=== PATIENT | female | born 1995 | race Caucasian/White ===

== ENCOUNTER 2021-04-03 13:07 | Emergency (ER) | payer MEDICAID ==
[2021-04-03] MEDS ORDERED: Lidocaine 2% Viscous Solution 15 ML Cup PO ONE (14:31)
[2021-04-03] MEDS ORDERED: Benzocaine 20% Topical Spray UD MUCMEM ONE (14:31)
--- NOTE | 2021-04-03 14:32 | EDM.PDOC ---
ED HPI GENERAL MEDICAL PROBLEM - General Chief Complaint: General Stated Complaint: RIGHT SIDE TOOTH PAIN Time Seen by Provider: 04/03/21 14:29 Source of Information: Reports: Patient History Limitations: Reports: No Limitations - History of Present Illness INITIAL COMMENTS - FREE TEXT/NARRATIVE: HISTORY AND PHYSICAL: History of present illness: Patient is a 25-year-old female who presents to the emergency room with complaints of right posterior upper and lower dental pain x2 weeks. She states the right posterior molar feels like an infected wisdom tooth. She does have an upcoming appointment with a local dentist although it is over a week out. Patient denies any fever, chills, headache, change in vision, syncope or near syncope. Denies any chest pain, back pain, shortness of breath or cough. Denies any GI or symptoms. Patient has been eating and drinking appropriately. No recent travel or sick contacts. Review of systems: As per history of present illness and below otherwise all systems reviewed and negative. Past medical history: As per history of present illness and as reviewed below otherwise noncontributory. Surgical history: As per history of present illness and as reviewed below otherwise noncontributory. Social history: See social history for further information Family history: As per history of present illness and as reviewed below otherwise noncontributory. Physical exam: General: Well developed and well nourished. Alert and orientated x 3. Nontoxic in appearance and in no acute distress. Vital signs are stable and have been re viewed by me. Nursing notes were reviewed. HEENT: Atraumatic, normocephalic, pupils equal and reactive bilaterally, negative for conjunctival pallor or scleral icterus, mucous membranes moist, erythema and soft tissue swelling at #31-32 and 1-2. No tenderness of the oral floor. TMs normal bilaterally, throat clear, neck supple, nontender, trachea midline. No drooling or trismus noted. No meningeal signs. No hot potato voice noted. Lungs: Clear to auscultation bilaterally. No wheezes, rales, or rhonchi. Chest nontender. Normal work of breathing, no accessory muscles used. Heart: S1S2, regular rate and rhythm without overt murmur, gallops, or rubs. No JVD. No peripheral edema Abdomen: Soft, nondistended, nontender. Skin: Intact, warm, dry. No lesions or rashes noted. Hematologic: No petechiae or purpra. Mucosa appropriate color and normal nail bed color and refill. Extremities: Atraumatic, moves all extremities per self without difficulty or deficits, negative for cords or calf pain. Neurovascular unremarkable. Neuro: Awake, alert, oriented. Cranial nerves II through XII unremarkable. Cerebellum unremarkable. Motor and sensory unremarkable throughout. Exam nonfocal. Psychiatric: Mood and affect are appropriate. Normal thought process. Answering questions appropriately. Please note that the patient was seen and evaluated during the 2019 SARS-CoV-2 novel coronavirus pandemic period. Community viral transmission is ongoing at time of this encounter and the emergency department is operating under pandemic response procedures. Medical Decision Making: I have talked with the patient about today's findings, in addition to providing specific details for plan of care. Reassessment at the time of disposition demonstrates that the patient is in no acute distress. The patient is stable for discharge, counseling was provided and we discussed in great detail signs and symptoms that would prompt them to return to the Emergency Department. Medication, follow up and supportive care measures were reviewed and discussed. Voices understanding and is agreeable to plan of care. Denies any further questions or concerns at this time. Diagnostics: None Therapeutics: Viscous/Hurricaine Dental Balls Prescription: Augmentin Impression: Dental abscess Plan: 1. You were evaluated today on an emergent basis. Your upper and lower posterior molars are infected. Please take the antibiotic as directed. 2. Tylenol and/or ibuprofen as needed for pain management. "Tooth Balls" have been given to you; apply along the gumline every 2-3 hours as needed. Do not swallow these; external use only. 3. We encourage you to follow up with a dentist for re-evaluation and further care/management. 4. If your symptoms should worsen, new symptoms develop or any of the signs and symptoms we discussed should arise please return to the emergency room or call 911 (if needed). Definitive disposition and diagnosis as appropriate pending reevaluation and review of above. Tooth/Teeth Pain Score (Numeric/FACES): 4 - Related Data Allergies Allergy/AdvReac Type Severity Reaction Status Date / Time No Known Allergies Allergy Verified 04/03/21 13:57 Home Meds: Home Meds Amoxicillin/Clavulanate K [Augmentin 875-125 MG] 1 tab PO BID 10 Days #20 tablet 04/03/21 [Rx] DULoxetine HCl [Cymbalta] 30 mg PO 04/03/21 [History] Hydrocodone/Acetaminophen [HYDROcodone-Acetaminophen 5-325 MG] 1 - 2 tab PO Q4HR PRN #20 tablet 04/03/21 [Rx] Social & Family History - Tobacco Use Second Hand Smoke Exposure: No - Caffeine Use Caffeine Use: Reports: None - Recreational Drug Use Recreational Drug Use: Yes Drug Use in Last 12 Months: Yes Recreational Drug Type: Reports: Marijuana/Hashish ED ROS GENERAL - Review of Systems Review Of Systems: Comprehensive ROS is negative, except as noted in HPI. ED EXAM, GENERAL - Physical Exam Exam: See Below (See dictation) Course - Vital Signs Last Recorded V/S: Last Vital Signs Temp 97.8 F 04/03/21 13:54 Pulse 80 04/03/21 13:54 Resp 20 04/03/21 13:54 BP 125/70 04/03/21 13:54 Pulse Ox 97 04/03/21 13:54 - Orders/Labs/Meds Meds: Medications Discontinued Medications Generic Name Dose Route Start Last Admin Trade Name Freq PRN Reason Stop Dose Admin Benzocaine 2 each 04/03/21 14:31 Benzocaine 20% Topical [place] Ud MUCMEM 04/03/21 14:32 ONETIME ONE Lidocaine HCl 15 ml 04/03/21 14:31 Lidocaine 2% Viscous Solution 15 Ml Cup PO 04/03/21 14:32 ONETIME ONE Departure - Departure Time of Disposition: 14:52 Disposition: Home, Self-Care 01 Clinical Impression: Dental abscess - Discharge Information Prescriptions: Amoxicillin/Clavulanate K [Augmentin 875-125 MG] 1 tab PO BID 10 Days #20 tablet Hydrocodone/Acetaminophen [HYDROcodone-Acetaminophen 5-325 MG] 1 - 2 tab PO Q4HR PRN #20 tablet PRN Reason: Pain (Moderate 4-6) Instructions: Dental Abscess, [id number] Referrals: Kianna Boles PA [Primary Care Provider] - Forms: ED Department Discharge Additional Instructions: The following information is given to patients seen in the emergency department who are being discharged to home. This information is to outline your options for follow-up care. We provide all patients seen in our emergency department with a follow-up referral. The need for follow-up, as well as the timing and circumstances, are variable depending upon the specifics of your emergency department visit. If you don't have a primary care physician on staff, we will provide you with a referral. We always advise you to contact your personal physician following an emergency department visit to inform them of the circumstance of the visit and for follow-up with them and/or the need for any referrals to a consulting specialist. The emergency department will also refer you to a specialist when appropriate. This referral assures that you have the opportunity for follow-up care with a specialist. All of these measure are taken in an effort to provide you with optimal care, which includes your follow-up. Under all circumstances we always encourage you to contact your private physician who remains a resource for coordinating your care. When calling for follow-up care, please make the office aware that this follow-up is from your recent emergency room visit. If for any reason you are refused follow-up, please contact the [facility] Emergency Department at and asked to speak to the emergency department charge nurse. [facility] [address] [place] [id number] [place] [address] Thank you for choosing the [facility] emergency department in [place] for your medical needs today. It was a pleasure caring for you. Today you were seen in the emergency department for dental abscess Your prescription was electronically sent to: [facility] 1. You were evaluated today on an emergent basis. Your upper and lower posterior molars are infected. Please take the antibiotic as directed. 2. Tylenol and/or ibuprofen as needed for pain management. "Tooth Balls" have been given to you; apply along the gumline every 2-3 hours as needed. Do not swallow these; external use only. 3. We encourage you to follow up with a dentist for re-evaluation and further care/management. 4. If your symptoms should worsen, new symptoms develop or any of the signs and symptoms we discussed should arise please return to the emergency room or call [phone] (if needed). Sepsis Event Note (ED) - Evaluation Sepsis Screening Result: No Definite Risk - Focused Exam Vital Signs: Vital Signs Temp Pulse Resp BP Pulse Ox 04/03/21 13:54 97.8 F 80 20 125/70 97
== END 2021-04-03 15:28 | disposition home or self-care (01) ==
LOC: MW.ED 13:07
DX: K04.7 Periapical abscess without sinus (principal)
CPT/HCPCS: 99282; A9270

== ENCOUNTER 2021-04-08 15:00 | Emergency (ER) | payer MEDICAID ==
--- NOTE | 2021-04-08 16:52 | EDM.PDOC ---
ED HPI GENERAL MEDICAL PROBLEM - General Chief Complaint: General Stated Complaint: TOOTHE PAIN Time Seen by Provider: 04/08/21 16:09 - History of Present Illness INITIAL COMMENTS - FREE TEXT/NARRATIVE: 25-year-old female presented with persistent right tooth pain. Symptoms been ongoing for the last 2 weeks she was seen here 5 days ago and started on antibiotics as well as given pain medicine. She was given 5/325 Roe as she is needed to take 2 at a time in order to help control her pain and has been out. Because of her Medicaid she needs to go up to [place] in order to get the dental procedure. No fevers no pain in the neck no difficulty swallowing. - Related Data Allergies Allergy/AdvReac Type Severity Reaction Status Date / Time No Known Allergies Allergy Verified 04/08/21 16:15 Home Meds: Home Meds Amoxicillin/Clavulanate K [Augmentin 875-125 MG] 1 tab PO BID 10 Days #20 tablet 04/03/21 [Rx] DULoxetine HCl [Cymbalta] 30 mg PO 04/03/21 [History] Hydrocodone/Acetaminophen [HYDROcodone-Acetaminophen 5-325 MG] 1 - 2 tab PO Q4HR PRN #20 tablet 04/03/21 [Rx] Hydrocodone/Acetaminophen [HYDROcodone-Acetaminophen 10-325 MG] 1 each PO Q6H PRN 7 Days #14 tab 04/08/21 [Rx] Past Medical History - Past Health History Medical/Surgical History: Denies Medical/Surgical History - Infectious Disease History Infectious Disease History: Reports: Chicken Pox Social & Family History - Family History Family Medical History: No Pertinent Family History - Tobacco Use Tobacco Use Status *Q: Current Every Day Tobacco User Years of Tobacco use: 10 Packs/Tins Daily: 1 - Caffeine Use Caffeine Use: Reports: Soda - Recreational Drug Use Recreational Drug Use: Yes Recreational Drug Type: Reports: Marijuana/Hashish Recreational Drug Use Frequency: Rarely ED ROS GENERAL - Review of Systems Review Of Systems: See Below Free Text/Narrative/Comment: General: No fever. Eyes: No vision problems. ENT: Per HPI Neck: No neck stiffness. Respiratory: No shortness of breath. Cardiac: No chest pain. Gastrointestinal: No nausea, vomiting or abdominal pain. ED EXAM, GENERAL - Physical Exam Exam: See Below Free Text/Narrative:: General Appearance: No acute distress, appears comfortable Skin: No rash HEENT: Normocephalic/atraumatic, sclera anicteric, mucous membranes moist, no trismus no submental or sublingual swelling broken teeth in the right side in the upper and lower jaw no clinical signs of abscess no fluctuance uvula midline no sign of CIRCUITS ENGINEER or RPA Neck: Normal range of motion Chest and Lungs: Normal work of breathing Cardiovascular: Intact distal perfusion Psychiatric: Appropriate, cooperative Course - Vital Signs Last Recorded V/S: Last Vital Signs Temp 96.8 F L 04/08/21 16:15 Pulse 69 04/08/21 16:15 Resp 18 04/08/21 16:15 BP 121/69 04/08/21 16:15 Pulse Ox 97 04/08/21 16:15 Departure - Departure Time of Disposition: 16:39 Disposition: Home, Self-Care 01 Condition: Good Clinical Impression: Tooth pain - Discharge Information *PRESCRIPTION DRUG MONITORING PROGRAM REVIEWED*: Yes *COPY OF PRESCRIPTION DRUG MONITORING REPORT IN PATIENT PARKER: No Prescriptions: Hydrocodone/Acetaminophen [HYDROcodone-Acetaminophen 10-325 MG] 1 each PO Q6H PRN 7 Days #14 tab PRN Reason: severe pain Referrals: Kianna Boles PA [Primary Care Provider] - Sepsis Event Note (ED) - Focused Exam Vital Signs: Vital Signs Temp Pulse Resp BP Pulse Ox 04/08/21 16:15 96.8 F L 69 18 121/69 97 - Assessment/Plan Assessment:: 25-year-old female presenting with ongoing right dental pain no signs of abscess or deep space infection of the head or neck. Patient is taking Tylenol and ibuprofen as well. She has a good concrete plan for how she will seek dental care for these reasons we will refill Roe prescription will increase dose to 10/325. Return precautions discussed and understood.
== END 2021-04-08 16:59 | disposition home or self-care (01) ==
LOC: MW.ED 15:00
DX: K08.89 Other specified disorders of teeth and supporting structures (principal); Z72.0 Tobacco use
CPT/HCPCS: 99282

== ENCOUNTER 2021-04-27 13:16 | Emergency (ER) | payer MEDICAID | END 2021-04-27 15:00 | disposition left against medical advice (07) | LOC: MW.ED 13:16 | DX: Z53.21 Procedure and treatment not carried out due to patient leaving prior to being seen by health care provider (principal) ==

== ENCOUNTER 2021-04-30 08:05 | Emergency (ER) | payer MEDICAID ==
[2021-04-30] MEDS ORDERED: traMADol 50 MG Tab PO ONE (08:27)
--- NOTE | 2021-04-30 09:06 | EDM.PDOC ---
ED HPI GENERAL MEDICAL PROBLEM - General Chief Complaint: General Stated Complaint: BACK PAIN Time Seen by Provider: 04/30/21 08:12 - History of Present Illness INITIAL COMMENTS - FREE TEXT/NARRATIVE: CHIEF COMPLAINT(S): Back pain HISTORY OF PRESENT ILLNESS: This is a 25-year-old woman with a past medical history of PCOS and fibromyalgia who comes to the emergency department with a chief complaint of back pain. Patient states that she is experiencing 4 to 5 days of back pain that is progressively gotten worse. She denies any bowel incontinence, urinary incontinence, saddle anesthesia, fever, chills, IV drug use. She states that she feels that just lateral to her spine in the mid spine and the shoulder. She describes the pain as burning and rated 10 out of 10. She said the pain is exacerbated by movement. There are no relieving factors. She states that she was seen and given tizanidine which has not helped. She states that she was told to take 2 but she took 5 which also did not help. She has tried Motrin but last dose was at 1:30 AM. She states that she also tried to smoke a significant amount of weed which also did not help. Pain does not radiate anywhere. REVIEW OF SYSTEMS: Constitutional: Denies fever, chills. Eyes: Denies eye pain Ears, Nose, Mouth, & Throat: Denies earache Cardiovascular: Denies chest pain Respiratory: Denies shortness of breath Gastrointestinal: Denies bowel incontinence, nausea, vomiting, diarrhea, hematochezia. Genitourinary: Denies hematuria, urinary incontinence Skin:Denies a rash MSK: Positive for paraspinal tenderness and shoulder tenderness Neurological: Denies blurred vision, numbness, tingling, weakness Psychiatric: Denies depression PAST MEDICAL HISTORY: As per history of present illness and as reviewed below otherwise noncontributory. SURGICAL HISTORY: As per history of present illness and as reviewed below otherwise noncontributory. SOCIAL HISTORY: As per history of present illness and as reviewed below otherwise noncontributory. FAMILY HISTORY: As per history of present illness and as reviewed below otherwise noncontributory. EXAMINATION OF ORGAN SYSTEMS/BODY AREAS: Constitutional: Blood pressure is 124/75, heart rate 81, respiratory rate 18 with an oxygen saturation 98% on room air. Temperature 36.1 General: Well-appearing young woman who is in no acute distress Psychiatric: Appropriate mood and affect. Eyes: No scleral icterus or conjunctival erythema ENMT: Moist mucous membranes. No pharyngeal erythema Cardiovascular: Regular, rate, and rhythm. No gallops, murmurs, or rubs. Bilateral upper extremity pulses symmetric and intact. No peripheral edema. No JVD. Respiratory: Lungs clear to auscultation bilaterally. No wheezes, rales, or rhonchi. Gastrointestinal: Soft, non-tender, non-distended. Normoactive bowel sounds Genitourinary: No suprapubic tenderness Musculoskeletal: Normal range of motion. No cervical, thoracic, or lumbar midline spinal tenderness. There is paraspinal muscle tenderness in the thora cic left-sided area and left shoulder area. Skin: No lesions or abrasions. Neurological: Alert, GCS 15 strength and sensation grossly intact in upper and lower extremities bilaterally MEDICAL DECISION MAKING AND COURSE IN THE ED WITH INTERPRETATION/REVIEW OF DIAGNOSTIC STUDIES: This is a 25-year-old woman with a past medical history of fibromyalgia and PCOS who comes to the emergency department with left-sided what appears to be musculoskeletal back pain. At this time although the patient denies any dysuria hematuria will obtain a urinalysis to evaluate for pyelonephritis/cystitis. We will provide the patient with tramadol for pain relief and I did discuss symptomatic treatment at home. She was amenable to this plan. DDx: Pyelonephritis, cystitis, musculoskeletal strain Urinalysis was a clean catch and was negative for leukocyte esterase, negative for nitrites, and negative for blood. X interpretation: Negative. After urinalysis I did discuss supportive treatment at home for her back pain. I discussed that if she had any new or worsening symptoms or had any red flag symptoms that she should return to the emergency department. She was amenable to discharge at this time and had no further questions DISPOSITION: The patient was discharged home in stable condition. The patient will follow up with 3 to 5 days. CONDITION: Fair PROCEDURES: None FINAL IMPRESSION(S)/DIAGNOSES: 1. Acute musculoskeletal back pain Ricardo Burdick M.D. Upper Shoulder Pain Score (Numeric/FACES): 7 - Related Data Allergies Allergy/AdvReac Type Severity Reaction Status Date / Time No Known Allergies Allergy Verified 04/30/21 08:10 Home Meds: Home Meds DULoxetine HCl [Cymbalta] 30 mg PO 04/03/21 [History] Acetaminophen [Tylenol Extra Strength] 1,000 mg PO Q6HR #56 tablet 04/30/21 [Rx] Ibuprofen 400 mg PO Q6HR #28 tablet 04/30/21 [Rx] methocarbamoL [Methocarbamol] 1,500 mg PO TID #42 tablet 04/30/21 [Rx] tiZANidine HCl [Tizanidine HCl] 2 mg PO Q8HR PRN 04/30/21 [History] traMADol [Ultram] 50 mg PO TID PRN #9 tablet 04/30/21 [Rx] Past Medical History - Past Health History Medical/Surgical History: Denies Medical/Surgical History 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 (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) 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 - Infectious Disease History Infectious Disease History: Reports: Chicken Pox Social & Family History - Family History Family Medical History: No Pertinent Family History - Tobacco Use Tobacco Use Status *Q: Current Every Day Tobacco User Years of Tobacco use: 10 Packs/Tins Daily: 1 - Caffeine Use Caffeine Use: Reports: Coffee, Energy Drinks, Soda, Tea - Recreational Drug Use Recreational Drug Type: Reports: Marijuana/Hashish Recreational Drug Use Frequency: Daily ED ROS GENERAL - Review of Systems Review Of Systems: See Below ED EXAM, GENERAL - Physical Exam Exam: See Below Course - Vital Signs Last Recorded V/S: Last Vital Signs Temp 36.1 C 04/30/21 08:13 Pulse 76 04/30/21 09:06 Resp 18 04/30/21 09:06 BP 107/65 04/30/21 09:06 Pulse Ox 97 04/30/21 09:06 - Orders/Labs/Meds Labs: Laboratory Tests 04/30/21 Range/Units 08:30 Urine Color YELLOW Urine Appearance CLEAR Urine pH 6.0 (5.0-8.0) Ur Specific [place] >= 1.030 (1.001-1.035) Urine Protein NEGATIVE (NEGATIVE) mg/dL Urine Glucose (UA) NEGATIVE (NEGATIVE) mg/dL Urine Ketones NEGATIVE (NEGATIVE) mg/dL Urine Occult Blood NEGATIVE (NEGATIVE) Urine Nitrite NEGATIVE (NEGATIVE) Urine Bilirubin NEGATIVE (NEGATIVE) Urine Urobilinogen 1.0 (<2.0) EU/dL Ur Leukocyte Esterase NEGATIVE (NEGATIVE) Meds: Medications Discontinued Medications Generic Name Dose Route Start Last Admin Trade Name Freq PRN Reason Stop Dose Admin Tramadol HCl 50 mg 04/30/21 08:27 04/30/21 08:35 Tramadol 50 Mg Tab PO 04/30/21 08:28 50 mg ONETIME ONE Administration Departure - Departure Time of Disposition: 09:05 Disposition: Home, Self-Care 01 Condition: Fair Clinical Impression: Back strain - Discharge Information *PRESCRIPTION DRUG MONITORING PROGRAM REVIEWED*: No *COPY OF PRESCRIPTION DRUG MONITORING REPORT IN PATIENT PARKER: No Prescriptions: Ibuprofen 400 mg PO Q6HR #28 tablet methocarbamoL [Methocarbamol] 1,500 mg PO TID #42 tablet Acetaminophen [Tylenol Extra Strength] 1,000 mg PO Q6HR #56 tablet traMADol [Ultram] 50 mg PO TID PRN #9 tablet PRN Reason: Pain (Severe 7-10) Instructions: Back Injury Prevention, [id number], Muscle Strain, [id number] Referrals: Kianna Boles PA [Primary Care Provider] - Forms: ED Department Discharge Additional Instructions: You were evaluated today on an emergent basis. At this time I do believe you are experiencing muscle spasm and back pain. I recommend you use Tylenol, Motrin, Robaxin and tramadol as prescribed. As discussed I would like you to use a heating pad 15 minutes every 3 hours as needed for relief. Please continue with your back stretches. If you have any episodes of accidentally urinating on yourself, defecate on yourself or you have any decreased sensation or you are concerned please return to the emergency department. Otherwise follow-up with primary care physician in 3 to 5 days for reevaluation. Please use: Tylenol 500-1000mg every 6 hours (DO NOT TAKE MORE THAN 4000mg in 1 day) Ibuprofen 400mg every 6 hours (Take with food as it can cause ulcers, GI upset) Example schedule: 8:00 AM (Tylenol 500-1000mg) 11:00 AM (Ibuprofen 400mg) 2:00 PM (Tylenol 500-1000mg) 5:00 PM (Ibuprofen 400mg) In addition to Tylenol and Motrin you may use over the counter creams such as Voltaren Cream or Lidocaine Cream (Lidoderm) as needed 4 times a day for symptomatic relief. Ice the area 20 minutes 4 times per day [facility] [address] [place], [place] [id number] [facility] [address] [place] [id number] The patient is informed of any results of their evaluation and diagnostic workup and all questions are answered. They are given discharge instructions and return precautions. The patient is stable for discharge. The patient states they understand and agree with the plan and that they will return if their symptoms get worse or if they have any new concerns. The following information is given to patients seen in the emergency department who are being discharged to home. This information is to outline your options for follow-up care. We provide all patients seen in our emergency department with a follow-up referral. The need for follow-up, as well as the timing and circumstances, are variable depending upon the specifics of your emergency department visit. If you don't have a primary care physician on staff, we will provide you with a referral. We always advise you to contact your personal physician following an emergency department visit to inform them of the circumstance of the visit and for follow-up with them and/or the need for any referrals to a consulting specialist. The emergency department will also refer you to a specialist when appropriate. This referral assures that you have the opportunity for follow-up care with a specialist. All of these measure are taken in an effort to provide you with optimal care, which includes your follow-up. Under all circumstances we always encourage you to contact your private physician who remains a resource for coordinating your care. When calling for follow-up care, please make the office aware that this follow-up is from your recent emergency room visit. If for any reason you are refused follow-up, please contact the [facility] Emergency Department at and asked to speak to the emergency department charge nurse. Sepsis Event Note (ED) - Evaluation Sepsis Screening Result: No Definite Risk
== END 2021-04-30 09:17 | disposition home or self-care (01) ==
LOC: MW.ED 08:05
DX: S39.012A Strain of muscle, fascia and tendon of lower back, initial encounter (principal); Z72.0 Tobacco use; X58.XXXA Exposure to other specified factors, initial encounter
CPT/HCPCS: 81003; 99283; A9270

== ENCOUNTER 2021-05-05 12:42 | Emergency (ER) | payer MEDICAID ==
[2021-05-05 14:02] LABS: BLOOD UREA NITROGEN,BUN 10 mg/dL (7.0-18.0); CARBON DIOXIDE,CO2 26.1 mmol/L (21.0-32.0); CHLORIDE,CL 105 mmol/L (98-107); GLUCOSE RANDOM 118 mg/dL (74-106); SODIUM,NA 137 mmol/L (136-145)
--- NOTE | 2021-05-05 15:15 | EDM.PDOC ---
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 Patient states with her PCOS, she does have abnormal menstrual cycles and states her last menstrual cycle was in December. Patient states that she is not on control but uses condoms with her significant other who she has been in a monogamous relationship with since December. Patient states that she also has chronic low back pain and states that she has had this since she was quite young but states that her painful menstrual cramping has worsened her low back pain. Patient denies any trauma or injury. Patient denies any loss or retention of bowel bladder function or saddle anesthesia. Patient states that she is currently being treated for bacterial vaginosis as she has had frequent vaginal infections with BV and states that she saw her primary care provider and was given the vaginal gel a few days ago. Patient states that she also has a history of ovarian cysts and states that her pain is somewhat similar to prior cysts in the past. Patient states that she has not taken anything for her symptoms and denies any other symptoms or concerns. Patient states that she uses a menstrual cup and blood through this and 1 pad since this morning. Patient denies fever, chills, chest pain, shortness of breath, or cough. Denies headache, neck stiff ness, change in vision, syncope, or near syncope. Denies nausea, vomiting, diarrhea, constipation, or dysuria. Has not noted any blood in urine or stool. Patient has been eating and drinking appropriately. Review of systems: As per history of present illness and below otherwise all systems reviewed and negative. Past medical history: As per history of present illness and as reviewed below otherwise noncontributory. Surgical history: As per history of present illness and as reviewed below otherwise noncontributory. Social history: See social history for further information Family history: As per history of present illness and as reviewed below otherwise noncontributory. Physical exam: General: Patient is alert, oriented, and in no acute distress. Patient sitting comfortably on exam table. Vitals stable and reviewed by me. HEENT: Atraumatic, normocephalic, pupils equal and reactive bilaterally, negative for conjunctival pallor or scleral icterus, mucous membranes moist, throat clear, neck supple, nontender, trachea midline. No drooling or trismus noted. No meningeal signs. No hot potato voice noted. Lungs: Clear to auscultation, breath sounds equal bilaterally, chest nontender. Heart: S1S2, regular rate and rhythm without overt murmur Abdomen: Soft, nondistended, mild-moderate suprapubic tenderness without guarding. Negative for masses or hepatosplenomegaly. Negative for costovertebral tenderness. Pelvis: Stable nontender. Genitourinary: Locksmith Apprentice at bedside Shasha Rivera RN. External genitalia grossly unremarkable. There is a mild to moderate amount of dark vaginal blood in the vaginal vault without clots. Positive cervical motion tenderness with positive chandelier sign. Uterus is also tender with no adnexal mass or tenderness. Rectal: Deferred. Skin: Intact, warm, dry. No lesions or rashes noted. Extremities: Atraumatic, negative for cords or calf pain. Neurovascular unremarkable. Neuro: Awake, alert, oriented. Cranial nerves II through XII unremarkable. Cerebellum unremarkable. Motor and sensory unremarkable throughout. Exam nonfocal. Medical Decision Making: Patient is a 25-year-old female with a history of PCOS and infrequent menstrual cycles, who presents emergency room today with concern of heavy vaginal bleeding with increased painful menstrual cycle x2 days. Upon arrival to the ED, patient is vitally stable and well-appearing on exam. She does have mild to moderate suprapubic tenderness on exam. Patient also has positive cervical motion tenderness with positive chandelier sign indicative of PID. Will give a dose of IM Rocephin here and treat empirically for pelvic inflammatory disease following gonorrhea and chlamydia swab. CBC mild derangements are unremarkable with hemoglobin and hematocrit within normal limits. CMP mild derangements unremarkable. hCG negative. Urinalysis does show 50-75 red blood cells, patient is actively vaginal bleeding, otherwise urinalysis is clear. Affirm negative. Transvaginal ultrasound shows a simple right ovarian cyst measuring up to 5.2 cm and a simple left ovarian cyst measuring up to 4.5 cm. Normal thickness endometrial stripe at 8 mm. Ovarian blood flow demonstrated bilaterally. Pending gonorrhea and chlamydia swab Upon reevaluation of patient, she remains vitally stable and comfortable throughout stay in ED. I did discuss patient's physical exam concerning for PID, although she is in a monogamous relationship and pending gonorrhea and chlamydia swab, will treat empirically at this time and have patient follow-up closely with a women's health care provider. Patient also has ovarian cysts on both of her ovaries and discussed the importance to have this evaluated in relation to her PCOS and next plan of treatment with her PROCESS CONTROLS TECHNICIAN provider. Patient placed on a follow-up list with PROCESS CONTROLS TECHNICIAN. Strict return precautions thoroughly discussed with patient. Voices understanding and is agreeable to plan of care. Denies any further questions or concerns at this time. Diagnostics: CBC, CMP, UA, serum hCG, lipase, transvaginal ultrasound, G&C, Affirm Therapeutics: Rocephin Prescription: Metronidazole, doxycycline, ([place]#8 tabs) Impression: Pelvic inflammatory disease Menorrhagia Ovarian cyst, bilateral Plan: 1. You can alternate ibuprofen and Tylenol as directed for pain and discomfort. Take medication as prescribed. Your prescription has been sent to [facility]. Caution when taking hydrocodone as this medication does cause drowsiness and sedation. Do not take this medication while driving a vehicle or operating any equipment and caution with this medication outside of the home. 2. Follow-up with the women's health care provider as discussed. The number has been provided above for you to call and set up an appointment time. 3. Return to the ED as needed and as discussed. Refrain from sexual activity for 2 weeks or until otherwise notified by the PROCESS CONTROLS TECHNICIAN provider. Definitive disposition and diagnosis as appropriate pending reevaluation and review of above. lower back Pain Score (Numeric/FACES): 7 - Related Data Allergies Allergy/AdvReac Type Severity Reaction Status Date / Time No Known Allergies Allergy Verified 05/05/21 13:14 Home Meds: Home Meds DULoxetine HCl [Cymbalta] 60 mg PO DAILY 04/03/21 [History] Acetaminophen [Tylenol Extra Strength] 1,000 mg PO Q6HR #56 tablet 04/30/21 [Rx] Ibuprofen 400 mg PO Q6HR #28 tablet 04/30/21 [Rx] tiZANidine HCl [Tizanidine HCl] 2 mg PO Q8HR PRN 04/30/21 [History] Doxycycline [Vibramycin] 100 mg PO BID 14 Days #28 cap 05/05/21 [Rx] Hydrocodone/Acetaminophen [HYDROcodone-Acetaminophen 7.5-325 MG] 1 each PO Q6H PRN #8 tablet 05/05/21 [Rx] metroNIDAZOLE [Flagyl] 500 mg PO Q12H 14 Days #28 tab 05/05/21 [Rx] Past Medical History - Past Health History Medical/Surgical History: Denies Medical/Surgical History HEENT History: Reports: None Cardiovascular History: Reports: None Respiratory History: Reports: None Gastrointestinal History: Reports: None Genitourinary History: Reports: None PROCESS CONTROLS TECHNICIAN History: Reports: Other (See Below) Other PROCESS CONTROLS TECHNICIAN History: PCOS, recurrent BV Musculoskeletal History: Reports: Back Pain, Chronic, Fibromyalgia Neurological History: Reports: None Psychiatric History: Reports: None Endocrine/Metabolic History: Reports: None Hematologic History: Reports: None Immunologic History: Reports: None Oncologic (Cancer) History: Reports: None Dermatologic History: Reports: None - Infectious Disease History Infectious Disease History: Reports: Chicken Pox, Pertussis (Whooping Cough) - Past Surgical History Head Surgeries/Procedures: Reports: None Female Surgical History: Reports: D&C Musculoskeletal Surgical History: Reports: None Social & Family History - Family History Family Medical History: No Pertinent Family History - Tobacco Use Tobacco Use Status *Q: Current Every Day Tobacco User Years of Tobacco use: 10 Packs/Tins Daily: 1 - Caffeine Use Caffeine Use: Reports: Coffee - Recreational Drug Use Recreational Drug Use: Yes Drug Use in Last 12 Months: Yes Recreational Drug Type: Reports: Marijuana/Hashish Recreational Drug Use Frequency: Daily ED ROS GENERAL - Review of Systems Review Of Systems: Comprehensive ROS is negative, except as noted in HPI. ED EXAM, GENERAL - Physical Exam Exam: See Below (see dictation) Course - Vital Signs Last Recorded V/S: Last Vital Signs Temp 98.9 F 05/05/21 16:53 Pulse 70 05/05/21 16:53 Resp 16 05/05/21 16:53 BP 106/79 05/05/21 16:53 Pulse Ox 95 05/05/21 16:53 - Orders/Labs/Meds Orders: Active Orders 24 hr Category Date Time Status CHLAMYDIA AND GONORRHEA BY TMA Stat Lab 05/05/21 16:20 Received Labs: Laboratory Tests 05/05/21 05/05/21 05/05/21 Range/Units 13:34 13:34 13:34 WBC 6.38 (4.0-11.0) K/uL RBC 4.57 (4.30-5.90) M/uL Hgb 14.1 (12.0-16.0) g/dL Hct 41.5 (36.0-46.0) % MCV 90.8 (80.0-98.0) fL MCH 30.9 (27.0-32.0) pg MCHC 34.0 (31.0-37.0) g/dL RDW Std Deviation 43.0 (28.0-62.0) fl RDW Coeff of Lyndsey 13 (11.0-15.0) % Plt Count 269 (150-400) K/uL MPV 10.00 (7.40-12.00) fL Neut % (Auto) 70.3 (48.0-80.0) % Lymph % (Auto) 17.4 (16.0-40.0) % [place] % (Auto) 4.5 (0.0-15.0) % Eos % (Auto) 7.5 H (0.0-7.0) % Baso % (Auto) 0.3 (0.0-1.5) % Neut # (Auto) 4.5 (1.4-5.7) K/uL Lymph # (Auto) 1.1 (0.6-2.4) K/uL [place] # (Auto) 0.3 (0.0-0.8) K/uL Eos # (Auto) 0.5 (0.0-0.7) K/uL Baso # (Auto) 0.0 (0.0-0.1) K/uL Nucleated RBC % 0.0 /100WBC Nucleated RBCs # 0 K/uL Sodium 137 (136-145) mmol/L Potassium 4.0 (3.5-5.1) mmol/L Chloride 105 (98-107) mmol/L Carbon Dioxide 26.1 (21.0-32.0) mmol/L BUN 10 (7.0-18.0) mg/dL Creatinine 0.7 (0.6-1.0) mg/dL Est Cr Clr Drug Dosing 102.51 mL/min Estimated GFR (MDRD) > 60.0 ml/min Glucose 118 H (74-106) mg/dL Calcium 8.7 (8.5-10.1) mg/dL Total Bilirubin 0.5 (0.2-1.0) mg/dL AST 14 L (15-37) IU/L ALT 18 (14-63) IU/L Alkaline Phosphatase 76 (46-116) U/L Total Protein 7.6 (6.4-8.2) g/dL Albumin 3.7 (3.4-5.0) g/dL Globulin 3.9 (2.6-4.0) g/dL Albumin/Globulin Ratio 0.9 (0.9-1.6) Lipase (73-393) U/L HCG, Qual NEGATIVE (NEG) Urine Color Urine Appearance Urine pH (5.0-8.0) Ur Specific [place] (1.001-1.035) Urine Protein (NEGATIVE) mg/dL Urine Glucose (UA) (NEGATIVE) mg/dL Urine Ketones (NEGATIVE) mg/dL Urine Occult Blood (NEGATIVE) Urine Nitrite (NEGATIVE) Urine Bilirubin (NEGATIVE) Urine Urobilinogen (<2.0) EU/dL Ur Leukocyte Esterase (NEGATIVE) Urine RBC (0-2/HPF) Urine WBC (0-5/HPF) Ur Epithelial Cells (NONE-FEW) Urine Bacteria (NEGATIVE) Mitzi species DNA (NEGATIVE) Gardnerella DNA Probe (NEGATIVE) Trichomonas DNA Probe (NEGATIVE) 05/05/21 05/05/21 05/05/21 Range/Units 13:34 14:40 15:50 WBC (4.0-11.0) K/uL RBC (4.30-5.90) M/uL Hgb 14.0 (12.0-16.0) g/dL Hct 40.5 (36.0-46.0) % MCV (80.0-98.0) fL MCH (27.0-32.0) pg MCHC (31.0-37.0) g/dL RDW Std Deviation (28.0-62.0) fl RDW Coeff of Lyndsey (11.0-15.0) % Plt Count (150-400) K/uL MPV (7.40-12.00) fL Neut % (Auto) (48.0-80.0) % Lymph % (Auto) (16.0-40.0) % [place] % (Auto) (0.0-15.0) % Eos % (Auto) (0.0-7.0) % Baso % (Auto) (0.0-1.5) % Neut # (Auto) (1.4-5.7) K/uL Lymph # (Auto) (0.6-2.4) K/uL [place] # (Auto) (0.0-0.8) K/uL Eos # (Auto) (0.0-0.7) K/uL Baso # (Auto) (0.0-0.1) K/uL Nucleated RBC % /100WBC Nucleated RBCs # K/uL Sodium (136-145) mmol/L Potassium (3.5-5.1) mmol/L Chloride (98-107) mmol/L Carbon Dioxide (21.0-32.0) mmol/L BUN (7.0-18.0) mg/dL Creatinine (0.6-1.0) mg/dL Est Cr Clr Drug Dosing mL/min Estimated GFR (MDRD) ml/min Glucose (74-106) mg/dL Calcium (8.5-10.1) mg/dL Total Bilirubin (0.2-1.0) mg/dL AST (15-37) IU/L ALT (14-63) IU/L Alkaline Phosphatase (46-116) U/L Total Protein (6.4-8.2) g/dL Albumin (3.4-5.0) g/dL Globulin (2.6-4.0) g/dL Albumin/Globulin Ratio (0.9-1.6) Lipase 101 (73-393) U/L HCG, Qual (NEG) Urine Color YELLOW Urine Appearance SLT CLOUDY Urine pH 7.0 (5.0-8.0) Ur Specific [place] 1.015 (1.001-1.035) Urine Protein NEGATIVE (NEGATIVE) mg/dL Urine Glucose (UA) NEGATIVE (NEGATIVE) mg/dL Urine Ketones NEGATIVE (NEGATIVE) mg/dL Urine Occult Blood LARGE H (NEGATIVE) Urine Nitrite NEGATIVE (NEGATIVE) Urine Bilirubin NEGATIVE (NEGATIVE) Urine Urobilinogen 0.2 (<2.0) EU/dL Ur Leukocyte Esterase NEGATIVE (NEGATIVE) Urine RBC 50-75 H (0-2/HPF) Urine WBC 0-5 (0-5/HPF) Ur Epithelial Cells RARE (NONE-FEW) Urine Bacteria NOT SEEN (NEGATIVE) Mitzi species DNA (NEGATIVE) Gardnerella DNA Probe (NEGATIVE) Trichomonas DNA Probe (NEGATIVE) 05/05/21 Range/Units 16:20 WBC (4.0-11.0) K/uL RBC (4.30-5.90) M/uL Hgb (12.0-16.0) g/dL Hct (36.0-46.0) % MCV (80.0-98.0) fL MCH (27.0-32.0) pg MCHC (31.0-37.0) g/dL RDW Std Deviation (28.0-62.0) fl RDW Coeff of Lyndsey (11.0-15.0) % Plt Count (150-400) K/uL MPV (7.40-12.00) fL Neut % (Auto) (48.0-80.0) % Lymph % (Auto) (16.0-40.0) % [place] % (Auto) (0.0-15.0) % Eos % (Auto) (0.0-7.0) % Baso % (Auto) (0.0-1.5) % Neut # (Auto) (1.4-5.7) K/uL Lymph # (Auto) (0.6-2.4) K/uL [place] # (Auto) (0.0-0.8) K/uL Eos # (Auto) (0.0-0.7) K/uL Baso # (Auto) (0.0-0.1) K/uL Nucleated RBC % /100WBC Nucleated RBCs # K/uL Sodium (136-145) mmol/L Potassium (3.5-5.1) mmol/L Chloride (98-107) mmol/L Carbon Dioxide (21.0-32.0) mmol/L BUN (7.0-18.0) mg/dL Creatinine (0.6-1.0) mg/dL Est Cr Clr Drug Dosing mL/min Estimated GFR (MDRD) ml/min Glucose (74-106) mg/dL Calcium (8.5-10.1) mg/dL Total Bilirubin (0.2-1.0) mg/dL AST (15-37) IU/L ALT (14-63) IU/L Alkaline Phosphatase (46-116) U/L Total Protein (6.4-8.2) g/dL Albumin (3.4-5.0) g/dL Globulin (2.6-4.0) g/dL Albumin/Globulin Ratio (0.9-1.6) Lipase (73-393) U/L HCG, Qual (NEG) Urine Color Urine Appearance Urine pH (5.0-8.0) Ur Specific [place] (1.001-1.035) Urine Protein (NEGATIVE) mg/dL Urine Glucose (UA) (NEGATIVE) mg/dL Urine Ketones (NEGATIVE) mg/dL Urine Occult Blood (NEGATIVE) Urine Nitrite (NEGATIVE) Urine Bilirubin (NEGATIVE) Urine Urobilinogen (<2.0) EU/dL Ur Leukocyte Esterase (NEGATIVE) Urine RBC (0-2/HPF) Urine WBC (0-5/HPF) Ur Epithelial Cells (NONE-FEW) Urine Bacteria (NEGATIVE) Mitzi species DNA NEGATIVE (NEGATIVE) Gardnerella DNA Probe NEGATIVE (NEGATIVE) Trichomonas DNA Probe NEGATIVE (NEGATIVE) Meds: Medications Discontinued Medications Generic Name Dose Route Start Last Admin Trade Name Freq PRN Reason Stop Dose Admin Ceftriaxone Sodium 500 mg/ 1 mls @ 1 mls/sec 05/05/21 16:33 05/05/21 16:50 Lidocaine HCl IM 05/05/21 16:34 1 mls/sec ONETIME ONE Administration Departure - Departure Time of Disposition: 16:13 Disposition: Home, Self-Care 01 Clinical Impression: Menorrhagia, Pelvic inflammatory disease, Ovarian cyst - Discharge Information Prescriptions: metroNIDAZOLE [Flagyl] 500 mg PO Q12H 14 Days #28 tab Hydrocodone/Acetaminophen [HYDROcodone-Acetaminophen 7.5-325 MG] 1 each PO Q6H PRN #8 tablet PRN Reason: Pain (Severe 7-10) Doxycycline [Vibramycin] 100 mg PO BID 14 Days #28 cap Instructions: Menorrhagia, [id number], Pelvic Inflammatory Disease, [id number] Referrals: Kianna Boles PA [Primary Care Provider] - Forms: ED Department Discharge Additional Instructions: GustThe following information is given to patients seen in the emergency department who are being discharged to home. This information is to outline your options for follow-up care. We provide all patients seen in our emergency department with a follow-up referral. The need for follow-up, as well as the timing and circumstances, are variable depending upon the specifics of your emergency department visit. If you don't have a primary care physician on staff, we will provide you with a referral. We always advise you to contact your personal physician following an emergency department visit to inform them of the circumstance of the visit and for follow-up with them and/or the need for any referrals to a consulting specialist. The emergency department will also refer you to a specialist when appropriate. This referral assures that you have the opportunity for follow-up care with a specialist. All of these measure are taken in an effort to provide you with optimal care, which includes your follow-up. Under all circumstances we always encourage you to contact your private physician who remains a resource for coordinating your care. When calling for follow-up care, please make the office aware that this follow-up is from your recent emergency room visit. If for any reason you are refused follow-up, please contact the [facility] Emergency Department at and asked to speak to the emergency department charge nurse. [facility] [address] [place] [id number] [facility] [address] [place] [address] 1. You can alternate ibuprofen and Tylenol as directed for pain and discomfort. Take medication as prescribed. Your prescription has been sent to [facility]. Caution when taking hydrocodone as this medication does cause drowsiness and sedation. Do not take this medication while driving a vehicle or operating any equipment and caution with this medication outside of the home. 2. Follow-up with the women's health care provider as discussed. The number has been provided above for you to call and set up an appointment time. 3. Return to the ED as needed and as discussed. Refrain from sexual activity for 2 weeks or until otherwise notified by the PROCESS CONTROLS TECHNICIAN provider. Sepsis Event Note (ED) - Evaluation Sepsis Screening Result: No Definite Risk - Focused Exam Vital Signs: Vital Signs Temp Pulse Resp BP Pulse Ox 05/05/21 16:53 98.9 F 70 16 106/79 95 05/05/21 13:16 96.8 F L 84 16 119/87 97 - My Orders Last 24 Hours: My Active Orders 05/05/21 16:20 CHLAMYDIA AND GONORRHEA BY [facility]MA Stat - Assessment/Plan Last 24 Hours: My Active Orders 05/05/21 16:20 CHLAMYDIA AND GONORRHEA BY [facility] Stat
--- NOTE | 2021-05-05 15:37 | US ---
INDICATION: Left pelvic pain and heavy bleeding. TECHNIQUE: Transvaginal scanning was performed to optimally evaluate the endometrium and adnexa. Ovarian blood flow was evaluated with color-flow doppler. COMPARISON: None. FINDINGS: The uterus is normal in size and shape. The uterus measures 8.7 x 3.9 x 4.0 cm. No uterine mass is evident. The endometrial stripe is normal in thickness at 8 mm. A simple right ovarian cyst measuring 5.2 x 4.7 x 3.3 cm is demonstrated as well as a simple left ovarian cyst measuring 4.5 x 3.0 x 2.6 cm. The right ovary measures 6.5 x 4.6 x 2.8 cm and left 5.4 x 3.6 x 2.8 cm. Ovarian blood flow is demonstrated with color-flow doppler. No adnexal mass is evident. No free fluid is demonstrated. IMPRESSION: 1. Simple right ovarian cyst measuring up to 5.2 cm and simple left ovarian cyst measuring up to 4.5 cm. 2. Normal-thickness endometrial stripe at 8 mm Dictated by Max Thompson MD @ 05/05/2021 3:36:21 PM (Electronically Signed)
[2021-05-05] MEDS ORDERED: cefTRIAXone 500 MG in Lidocaine 1% 1 ML IM ONE (16:33)
[2021-05-08 15:07] LABS: C.TRACHOMATIS BY TMA Negative (Negative); N.GONORRHOEAE BY TMA Negative (Negative)
== END 2021-05-05 16:59 | disposition home or self-care (01) ==
LOC: MW.ED 12:42
DX: N73.9 Female pelvic inflammatory disease, unspecified (principal); N92.0 Excessive and frequent menstruation with regular cycle; N83.201 Unspecified ovarian cyst, right side; N83.202 Unspecified ovarian cyst, left side; Z72.0 Tobacco use; Z79.899 Other long term (current) drug therapy
CPT/HCPCS: 36415; 76830; 80053; 81001; 83690; 84703; 85014; 85018; 85025; 87480; 87491; 87510; 87591; 87660; 96372; 99284; J0696

== ENCOUNTER 2021-06-16 07:13 | Emergency (ER) | payer MEDICAID ==
[2021-06-16] MEDS ORDERED: Alum Hydro/Mag Hydro/Simeth XS 15 ML, Lidocaine 2% 5 ML PO ONE ×2 (07:47)
[2021-06-16] MEDS ORDERED: Ondansetron 4 MG/2 ML SDV IVPUSH ONE (07:47)
[2021-06-16] MEDS ORDERED: Sodium Chloride 0.9% 1,000 ML IV ONE (07:47)
[2021-06-16] MEDS ORDERED: Famotidine 20 MG/2 ML SDV IVPUSH ONE (07:47)
[2021-06-16 08:16] LABS: BLOOD UREA NITROGEN,BUN 18 mg/dL (7.0-18.0); CARBON DIOXIDE,CO2 20.3 mmol/L (21.0-32.0); CHLORIDE,CL 102 mmol/L (98-107); GLUCOSE RANDOM 122 mg/dL (74-106); LIPASE 135 U/L (73-393); POTASSIUM,K 4.2 mmol/L (3.5-5.1); SODIUM,NA 139 mmol/L (136-145)
[2021-06-16] MEDS ORDERED: Ondansetron 4 MG/2 ML SDV IVPUSH STA (08:34)
[2021-06-16] MEDS ORDERED: Piperacillin/Tazobactam 4.5 GM in Sodium Chloride 0.9% 100 ML IV STA (08:37)
[2021-06-16] MEDS ORDERED: Sodium Chloride 0.9% 100 ML ONE (08:45)
[2021-06-16] MEDS ORDERED: Piperacillin/Tazobactam 4.5 GM AdvVial ONE (08:45)
--- NOTE | 2021-06-16 09:00 | EDM.PDOC ---
<Shahla Clark - Last Filed: 06/16/21 09:28> ED HPI GENERAL MEDICAL PROBLEM - General Chief Complaint: Gastrointestinal Problem Stated Complaint: VOMITING Time Seen by Provider: 06/16/21 07:17 - History of Present Illness INITIAL COMMENTS - FREE TEXT/NARRATIVE: 25-year-old female presents to the ER with complaints of nausea, vomiting and diarrhea since 4 AM this morning. Patient states she was seen in the walk-in clinic yesterday for dental caries and given a prescription for codeine and Augmentin. She did not pick up attendant her Augmentin. She is unsure if this is related to her dinner she ordered last night. As per patient she woke up at 3 AM with abdominal cramps and nausea. She has been vomiting clear nonbilious, nonbloody vomit since, roughly 5 episodes. 3 episodes of watery stools. Denies fever or chills. Denies hematochezia, melena, or hematuria. Denies dysuria. Denies chest pain, palpitations, headaches, lightheadedness, or syncope. Bilateral Abdominal Pain Score (Numeric/FACES): 6 - Related Data Allergies Allergy/AdvReac Type Severity Reaction Status Date / Time No Known Allergies Allergy Verified 06/16/21 07:20 Home Meds: Home Meds DULoxetine HCl [Cymbalta] 60 mg PO DAILY 04/03/21 [History] Acetaminophen [Tylenol Extra Strength] 1,000 mg PO Q6HR #56 tablet 04/30/21 [Rx] Ibuprofen 400 mg PO Q6HR #28 tablet 04/30/21 [Rx] tiZANidine HCl [Tizanidine HCl] 2 mg PO Q8HR PRN 04/30/21 [History] Doxycycline [Vibramycin] 100 mg PO BID 14 Days #28 cap 05/05/21 [Rx] Hydrocodone/Acetaminophen [HYDROcodone-Acetaminophen 7.5-325 MG] 1 each PO Q6H PRN #8 tablet 05/05/21 [Rx] metroNIDAZOLE [Flagyl] 500 mg PO Q12H 14 Days #28 tab 05/05/21 [Rx] ondansetron HCL [Zofran] 4 mg PO Q8HR PRN #12 tablet 06/16/21 [Rx] Past Medical History - Past Health History Medical/Surgical History: Denies Medical/Surgical History HEENT History: Reports: None Cardiovascular History: Reports: None Respiratory History: Reports: None Gastrointestinal History: Reports: None Genitourinary History: Reports: None 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 ENGINEER 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: 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: 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 (See Below) Other 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 ENGINEER History: PCOS, recurrent BV Musculoskeletal History: Reports: Back Pain, Chronic, Fibromyalgia Neurological History: Reports: None Psychiatric History: Reports: None Endocrine/Metabolic History: Reports: None Hematologic History: Reports: None Immunologic History: Reports: None Oncologic (Cancer) History: Reports: None Dermatologic History: Reports: None - Infectious Disease History Infectious Disease History: Reports: Chicken Pox, Pertussis (Whooping Cough) - Past Surgical History Head Surgeries/Procedures: Reports: None Female Surgical History: Reports: D&C Musculoskeletal Surgical History: Reports: None Social & Family History - Family History Family Medical History: No Pertinent Family History - Tobacco Use Tobacco Use Status *Q: Current Every Day Tobacco User Years of Tobacco use: 10 Packs/Tins Daily: 0.5 - Caffeine Use Caffeine Use: Reports: Coffee - Recreational Drug Use Recreational Drug Use: No ED ROS GENERAL - Review of Systems Review Of Systems: Comprehensive ROS is negative, except as noted in HPI. ED EXAM, GENERAL - Physical Exam Exam: See Below General Appearance: Alert, No Apparent Distress Eye Exam: Bilateral Eye: Normal Inspection Nose: Normal Inspection Throat/Mouth: Other (Dry mucosa. Dental caries present x3 on upper right #3, lower right #30, and lower left #19. Uvula midline. Posterior oropharynx appears normal.) Head: Atraumatic, Normocephalic. No: Sinus Tenderness Neck: Normal Inspection, Supple, Non-Tender, Full Range of Motion. No: Lymphadenopathy (L), Lymphadenopathy (R) Respiratory/Chest: No Respiratory Distress, Lungs Clear Cardiovascular: Normal Peripheral Pulses, Regular Rate, Rhythm GI/Abdominal: Soft, Non-Tender Extremities: Normal Inspection Skin Exam: Warm, Dry, Intact Course - Re-Assessments/Exams Free Text/Narrative Re-Assessment/Exam: 06/16/21 09:17 Patient received 1 L normal saline. Zofran, GI cocktail and famotidine. Patient states she feels better and abdominal discomfort has subsided. She continues to have mild nausea. We will repeat 1 dose of Zofran. Elevated WBC, will give Zosyn. CMP unremarkable. UA shows no sign of infection. 06/16/21 09:18 Free Text/Narrative Re-Assessment/Exam: 06/16/21 09:28 Patient has now tolerating diet. Nausea vomiting has subsided. Patient feels better. Strict return precautions given. Will send prescription for Zofran. Departure - Departure Time of Disposition: :28 Disposition: Home, Self-Care 01 Condition: Good Clinical Impression: Dental abscess, Nausea & vomiting - Discharge Information *PRESCRIPTION DRUG MONITORING PROGRAM REVIEWED*: Not Applicable *COPY OF PRESCRIPTION DRUG MONITORING REPORT IN PATIENT PARKER: Not Applicable Prescriptions: ondansetron HCL [Zofran] 4 mg PO Q8HR PRN #12 tablet PRN Reason: Nausea/Vomiting Instructions: Dental Abscess, [id number] Referrals: Kianna Boles PA [Primary Care Provider] - Forms: ED Department Discharge Additional Instructions: The following information is given to patients seen in the emergency department who are being discharged to home. This information is to outline your options for follow-up care. We provide all patients seen in our emergency department with a follow-up referral. The need for follow-up, as well as the timing and circumstances, are variable depending upon the specifics of your emergency department visit. If you don't have a primary care physician on staff, we will provide you with a referral. We always advise you to contact your personal physician following an emergency department visit to inform them of the circumstance of the visit and for follow-up with them and/or the need for any referrals to a consulting specialist. The emergency department will also refer you to a specialist when appropriate. This referral assures that you have the opportunity for follow-up care with a specialist. All of these measure are taken in an effort to provide you with optimal care, which includes your follow-up. Under all circumstances we always encourage you to contact your private physician who remains a resource for coordinating your care. When calling for follow-up care, please make the office aware that this follow-up is from your recent emergency room visit. If for any reason you are refused follow-up, please contact the [facility] Emergency Department at and asked to speak to the emergency department charge nurse. [facility] [address] [place] [id number] [facility] [address] [place] [id number] Thank you for choosing the [facility] emergency department in [place] for your medical needs today. It was a pleasure caring for you. Today you were seen in the emergency department for nausea and vomiting. You have been sent a prescription for Zofran to help nausea and vomiting. Pleas e take 1 tablet as needed. It is very important you treat your dental infections with the prescription you received in the walk-in clinic. Please complete your antibiotic regimen. Is very important you seek dental care so this does not recur. If you experience fever, chills, swelling of your throat, difficulty breathing, difficulty swallowing, abdominal pain, please seek medical attention imme diately. Sepsis Event Note (ED) - Evaluation Sepsis Screening Result: No Definite Risk - Problem List & Annotations (1) Diarrhea SNOMED Code(s): 72943352 Code(s): R19.7 - DIARRHEA, UNSPECIFIED Status: Acute (2) Nausea & vomiting SNOMED Code(s): 70735272 Code(s): R11.2 - NAUSEA WITH VOMITING, UNSPECIFIED Status: Acute (3) Dental abscess SNOMED Code(s): 624720108 Code(s): K04.7 - PERIAPICAL ABSCESS WITHOUT SINUS Status: Acute - Problem List Review Problem List Initiated/Reviewed/Updated: Yes <Sha Saldana - Last Filed: 06/17/21 08:00> Course - Vital Signs Last Recorded V/S: Last Vital Signs Temp 98.1 F 06/16/21 09:37 Pulse 80 06/16/21 09:37 Resp 18 06/16/21 09:37 BP 107/79 06/16/21 09:37 Pulse Ox 98 06/16/21 09:37 - Orders/Labs/Meds Orders: Active Orders 24 hr Category Date Time Status Saline Lock Insert [OM.PC] Stat Oth 06/16/21 07:47 Ordered Labs: Laboratory Tests 06/16/21 06/16/21 06/16/21 Range/Units 07:20 07:20 07:20 WBC 17.82 H (4.0-11.0) K/uL RBC 5.21 (4.30-5.90) M/uL Hgb 16.4 H (12.0-16.0) g/dL Hct 47.2 H (36.0-46.0) % MCV 90.6 (80.0-98.0) fL MCH 31.5 (27.0-32.0) pg MCHC 34.7 (31.0-37.0) g/dL RDW Std Deviation 44.3 (28.0-62.0) fl RDW Coeff of Lyndsey 14 (11.0-15.0) % Plt Count 458 H (150-400) K/uL MPV 10.40 (7.40-12.00) fL Neut % (Auto) 84.3 H (48.0-80.0) % Lymph % (Auto) 6.3 L (16.0-40.0) % [place] % (Auto) 6.9 (0.0-15.0) % Eos % (Auto) 2.2 (0.0-7.0) % Baso % (Auto) 0.3 (0.0-1.5) % Neut # (Auto) 15.0 H (1.4-5.7) K/uL Lymph # (Auto) 1.1 (0.6-2.4) K/uL [place] # (Auto) 1.2 H (0.0-0.8) K/uL Eos # (Auto) 0.4 (0.0-0.7) K/uL Baso # (Auto) 0.1 (0.0-0.1) K/uL Nucleated RBC % 0.0 /100WBC Nucleated RBCs # 0 K/uL Sodium 139 (136-145) mmol/L Potassium 4.2 (3.5-5.1) mmol/L Chloride 102 (98-107) mmol/L Carbon Dioxide 20.3 L (21.0-32.0) mmol/L BUN 18 (7.0-18.0) mg/dL Creatinine 0.9 (0.6-1.0) mg/dL Est Cr Clr Drug Dosing 76.23 mL/min Estimated GFR (MDRD) > 60.0 ml/min Glucose 122 H (74-106) mg/dL Lactic Acid (0.4-2.0) mmol/L Calcium 10.1 (8.5-10.1) mg/dL Magnesium 1.9 (1.8-2.4) mg/dL Total Bilirubin 0.6 (0.2-1.0) mg/dL AST 21 (15-37) IU/L ALT 31 (14-63) IU/L Alkaline Phosphatase 107 (46-116) U/L C-Reactive Protein 0.60 (0.00-0.90) mg/dL Total Protein 9.0 H (6.4-8.2) g/dL Albumin 4.6 (3.4-5.0) g/dL Globulin 4.4 H (2.6-4.0) g/dL Albumin/Globulin Ratio 1.1 (0.9-1.6) Lipase 135 (73-393) U/L HCG, Qual NEGATIVE (NEG) Urine Color Urine Appearance Urine pH (5.0-8.0) Ur Specific [place] (1.001-1.035) Urine Protein (NEGATIVE) mg/dL Urine Glucose (UA) (NEGATIVE) mg/dL Urine Ketones (NEGATIVE) mg/dL Urine Occult Blood (NEGATIVE) Urine Nitrite (NEGATIVE) Urine Bilirubin (NEGATIVE) Urine Urobilinogen (<2.0) EU/dL Ur Leukocyte Esterase (NEGATIVE) Urine RBC (0-2/HPF) Urine WBC (0-5/HPF) Ur Epithelial Cells (NONE-FEW) Urine Bacteria (NEGATIVE) Urine Mucus (NONE-MOD) 06/16/21 06/16/21 Range/Units 07:59 08:01 WBC (4.0-11.0) K/uL RBC (4.30-5.90) M/uL Hgb (12.0-16.0) g/dL Hct (36.0-46.0) % MCV (80.0-98.0) fL MCH (27.0-32.0) pg MCHC (31.0-37.0) g/dL RDW Std Deviation (28.0-62.0) fl RDW Coeff of Lyndsey (11.0-15.0) % Plt Count (150-400) K/uL MPV (7.40-12.00) fL Neut % (Auto) (48.0-80.0) % Lymph % (Auto) (16.0-40.0) % [place] % (Auto) (0.0-15.0) % Eos % (Auto) (0.0-7.0) % Baso % (Auto) (0.0-1.5) % Neut # (Auto) (1.4-5.7) K/uL Lymph # (Auto) (0.6-2.4) K/uL [place] # (Auto) (0.0-0.8) K/uL Eos # (Auto) (0.0-0.7) K/uL Baso # (Auto) (0.0-0.1) K/uL Nucleated RBC % /100WBC Nucleated RBCs # K/uL Sodium (136-145) mmol/L Potassium (3.5-5.1) mmol/L Chloride (98-107) mmol/L Carbon Dioxide (21.0-32.0) mmol/L BUN (7.0-18.0) mg/dL Creatinine (0.6-1.0) mg/dL Est Cr Clr Drug Dosing mL/min Estimated GFR (MDRD) ml/min Glucose (74-106) mg/dL Lactic Acid 1.7 (0.4-2.0) mmol/L Calcium (8.5-10.1) mg/dL Magnesium (1.8-2.4) mg/dL Total Bilirubin (0.2-1.0) mg/dL AST (15-37) IU/L ALT (14-63) IU/L Alkaline Phosphatase (46-116) U/L C-Reactive Protein (0.00-0.90) mg/dL Total Protein (6.4-8.2) g/dL Albumin (3.4-5.0) g/dL Globulin (2.6-4.0) g/dL Albumin/Globulin Ratio (0.9-1.6) Lipase (73-393) U/L HCG, Qual (NEG) Urine Color DARK YELLOW Urine Appearance SLT CLOUDY Urine pH 6.0 (5.0-8.0) Ur Specific [place] >= 1.030 (1.001-1.035) Urine Protein 100 H (NEGATIVE) mg/dL Urine Glucose (UA) 100 H (NEGATIVE) mg/dL Urine Ketones TRACE H (NEGATIVE) mg/dL Urine Occult Blood NEGATIVE (NEGATIVE) Urine Nitrite NEGATIVE (NEGATIVE) Urine Bilirubin MODERATE H (NEGATIVE) Urine Urobilinogen 1.0 (<2.0) EU/dL Ur Leukocyte Esterase NEGATIVE (NEGATIVE) Urine RBC 0-2 (0-2/HPF) Urine WBC 0-2 (0-5/HPF) Ur Epithelial Cells OCCASIONAL (NONE-FEW) Urine Bacteria FEW (NEGATIVE) Urine Mucus MODERATE (NONE-MOD) Meds: Medications Discontinued Medications Generic Name Dose Route Start Last Admin Trade Name Joshua PRN Reason Stop Dose Admin Alum [place]/Mag [place]/Simeth XS 0 ml 06/16/21 07:47 06/16/21 08:00 15 ml/ Lidocaine HCl 5 ml PO 06/16/21 07:48 1 each ONETIME ONE Administration Famotidine 20 mg 06/16/21 07:47 06/16/21 08:00 Famotidine 20 Mg/2 Ml Sdv IVPUSH 06/16/21 07:48 20 mg ONETIME ONE Administration Sodium Chloride 1,000 mls @ 999 mls/hr 06/16/21 07:47 06/16/21 08:00 Normal Saline IV 06/16/21 08:47 999 mls/hr .Bolus ONE Administration Piperacillin Sod/Tazobactam 100 mls @ 100 mls/hr 06/16/21 08:37 06/16/21 09:00 Sod 4.5 gm/ Sodium Chloride IV 06/16/21 09:36 100 mls/hr ONETIME STA Administration Sodium Chloride Confirm 06/16/21 08:45 06/16/21 09:02 Normal Saline Advbag Administered 06/16/21 08:46 Not Given Dose 100 mls @ as directed .ROUTE .STK-MED ONE Ondansetron HCl 4 mg 06/16/21 07:47 06/16/21 08:00 Ondansetron 4 Mg/2 Ml Sdv IVPUSH 06/16/21 07:48 4 mg ONETIME ONE Administration Ondansetron HCl 4 mg 06/16/21 08:34 06/16/21 09:00 Ondansetron 4 Mg/2 Ml Sdv IVPUSH 06/16/21 08:35 4 mg ONETIME STA Administration Piperacillin Sod/Tazobactam Sod Confirm 06/16/21 08:45 06/16/21 09:02 Piperacillin/Tazobactam 4.5 Gm Advvial Administered 06/16/21 08:46 Not Given Dose 4.5 gm .ROUTE .[facility]-MED ONE - Re-Assessments/Exams Free Text/Narrative Re-Assessment/Exam: 06/16/21 09:25 I saw this patient with the resident physician Dr. Clark. I agree with the history, physical exam, medical decision making, and plan as documented. I had [id number] time with this patient and did confirm the physical exam findings as documented. The patient has a benign abdomen and reassuring exam. She is tolerating PO. She was given a 1x dose of IV antibiotics and she already has a prescription for PO antibiotics that she will fill this afternoon. We will also send her with PO zofran to help with her N/V. She will f/u with dentist early next week. She understands return precautions which were discussed by me and by the resident physician at length.
== END 2021-06-16 09:35 | disposition home or self-care (01) ==
LOC: MW.ED 07:13
DX: K04.7 Periapical abscess without sinus (principal); R11.2 Nausea with vomiting, unspecified; K02.9 Dental caries, unspecified; Z72.0 Tobacco use
CPT/HCPCS: 36415; 80053; 81001; 83605; 83690; 83735; 84703; 85025; 86140; 96374; 96375; 99284; A9270; J2405; J2543; J3490; J7030

== ENCOUNTER 2021-08-01 07:08 | Emergency (ER) | payer MEDICAID | END 2021-08-01 07:36 | disposition home or self-care (01) | LOC: MW.ED 07:08 | DX: K04.7 Periapical abscess without sinus (principal); Z72.0 Tobacco use | CPT/HCPCS: 99282 ==

== ENCOUNTER 2022-08-23 12:04 | Emergency (ER) | payer MEDICAID ==
[2022-08-23] MEDS ORDERED: Ketorolac 30 MG/ML SDV IM ONE (12:16)
[2022-08-23] MEDS ORDERED: Cyclobenzaprine 10 MG Tab PO ONE (12:16)
[2022-08-23] MEDS ORDERED: Acetaminophen 500 MG Tab PO ONE (12:19)
== END 2022-08-23 13:16 | disposition home or self-care (01) ==
LOC: MW.ED 12:04
DX: M25.552 Pain in left hip (principal)
CPT/HCPCS: 96372; 99283; A9270; J1885; 99282

== ENCOUNTER 2023-01-02 10:45 | Emergency (ER) | payer MEDICAID ==
[2023-01-02] MEDS ORDERED: Cyclobenzaprine 10 MG Tab PO ONE (11:37)
[2023-01-02] MEDS ORDERED: Ketorolac 60 MG/2 ML SDV IM ONE (11:37)
[2023-01-02] MEDS ORDERED: Lidocaine 4% 1 each Patch TOP PRN (11:43)
== END 2023-01-02 13:00 | disposition home or self-care (01) ==
LOC: MW.ED 10:45
DX: M25.552 Pain in left hip (principal); G89.29 Other chronic pain
CPT/HCPCS: 73502; 96372; 99283; A9270; J1885; 99284

== ENCOUNTER 2023-04-02 12:49 | Emergency (ER) | payer MEDICAID ==
[2023-04-02] MEDS ORDERED: Ondansetron 4 MG/2 ML SDV IVPUSH ONE (13:13)
[2023-04-02] MEDS ORDERED: Sodium Chloride 0.9% 1,000 ML IV ONE (13:13)
[2023-04-02 13:18] LABS: BASOPHILS ABSOLUTE AUTO 0.06 K/uL (0.00-0.20); BASOPHILS PERCENT AUTO 0.6 % (0.0-1.0); EOSINOPHILS ABSOLUTE AUTO 0.34 K/uL (0.00-0.45); EOSINOPHILS PERCENT AUTO 3.5 % (0.0-6.0); HEMATOCRIT 43.9 % (37.0-47.0); HEMOGLOBIN 15.5 g/dL (12.0-16.0); IMMATURE GRAN ABSOLUTE AUTO 0.02 K/uL (0.00-0.05); IMMATURE GRAN PERCENT AUTO 0.2 % (0.0-0.4); LYMPHOCYTES ABSOLUTE AUTO 2.16 K/uL (1.00-4.80); LYMPHOCYTES PERCENT AUTO 22.5 % (24.0-44.0); MEAN CORPUSCULAR HEMOGLOBIN 31.1 pg (28.0-32.0); MEAN CORPUSCULAR HGB CONC 35.3 g/dL (32.0-36.0); MEAN CORPUSCULAR VOLUME 88.2 fL (83.0-99.0); MEAN PLATELET VOLUME 10.1 fL (9.4-12.3); MONOCYTES ABSOLUTE AUTO 0.68 K/uL (0.00-0.80); MONOCYTES PERCENT AUTO 7.1 % (0.0-8.0); NEUTROPHILS ABSOLUTE AUTO 6.34 K/uL (1.80-7.70); NEUTROPHILS PERCENT AUTO 66.1 % (41.0-71.0); PLATELET COUNT,PLT 321 K/uL (150-400); RED BLOOD CELL COUNT 4.98 M/uL (4.10-5.30)
[2023-04-02 13:29] LABS: A/G RATIO 1.1 (0.9-1.6); ALBUMIN 4.7 g/dL (3.4-5.0); BILIRUBIN TOTAL 0.9 mg/dL (0.2-1.0); CALCIUM 9.5 mg/dL (8.5-10.1); CARBON DIOXIDE,CO2 21.6 mmol/L (21.0-32.0); CREATININE 0.8 mg/dL (0.6-1.0); EST CRCL DRUG DOSING (CG) 88.15 mL/min; POTASSIUM,K 3.6 mmol/L (3.5-5.1); PROTEIN TOTAL,TP 8.9 g/dL (6.4-8.2)
[2023-04-02 13:46] LABS: BILIRUBIN,URINE NEGATIVE (NEGATIVE); COLOR,URINE YELLOW; GLUCOSE,URINE NEGATIVE (NEGATIVE); KETONES,URINE 15 mg/dL (NEGATIVE); LEUKOCYTE ESTERASE,URINE TRACE (NEGATIVE); NITRITE,URINE NEGATIVE (NEGATIVE); OCCULT BLOOD,URINE NEGATIVE (NEGATIVE); PROTEIN,URINE NEGATIVE (NEGATIVE); UROBILINOGEN,URINE 0.2 EU/dL (<2.0)
[2023-04-02 14:01] LABS: APPEARANCE,URINE SLT CLOUDY
[2023-04-02 14:02] LABS: BACTERIA,URINE FEW (NEGATIVE); EPITHELIAL CELLS,URINE MANY (NONE-FEW); MUCUS,URINE MANY (NONE-MOD); RBC,URINE 0-2 (0-2/HPF)
[2023-04-02 14:03] LABS: AMORPHOUS SEDIMENT,URINE MANY (NEGATIVE)
[2023-04-02] MEDS ORDERED: Dicyclomine 10 MG Cap PO ONE (14:31)
== END 2023-04-02 15:40 | disposition home or self-care (01) ==
LOC: MW.ED 12:49
DX: R11.2 Nausea with vomiting, unspecified (principal); R19.7 Diarrhea, unspecified
CPT/HCPCS: 36415; 80053; 81001; 82947; 84703; 85025; 87086; 96361; 96374; 99284; A9270; J2405; J7030